=== PATIENT | male | born 1995 | race Caucasian/White ===

== ENCOUNTER 2017-03-07 01:08 | Emergency (ER) | payer BC ==
[2017-03-07 01:10] VITALS: BP 123/71; PULSE 88; TEMP 99.3
== END 2017-03-07 02:36 | disposition home or self-care (01) ==
LOC: COL.ER 01:08
DX: S01.01XA Laceration without foreign body of scalp, initial encounter (principal); F32.9 Major depressive disorder, single episode, unspecified; F41.9 Anxiety disorder, unspecified; Z21 Asymptomatic human immunodeficiency virus [HIV] infection status; W18.39XA Other fall on same level, initial encounter; W22.8XXA Striking against or struck by other objects, initial encounter; Y92.009 Unspecified place in unspecified non-institutional (private) residence as the place of occurrence of the external cause

== ENCOUNTER 2017-03-14 17:11 | Emergency (ER) | payer BC ==
[2017-03-14 17:15] VITALS: BP 129/76; PULSE 89; TEMP 98.3
== END 2017-03-14 17:31 | disposition home or self-care (01) ==
LOC: COL.ER 17:11
DX: Z48.02 Encounter for removal of sutures (principal)